=== PATIENT | female | born 1980 | race African-American/Black ===

== ENCOUNTER 2023-12-05 11:10 | Emergency (ER) ==
[~2023-12-05] VITALS: Ht 165.1 cm; Wt 77.1 kg
[2023-12-05 11:15] VITALS: PULSE 80; RESP 19; TEMP 99; O2SAT 100
== END 2023-12-05 16:30 | disposition short-term general hospital (02) ==
LOC: ER 13:25
DX: M54.9 Dorsalgia, unspecified (principal)